=== PATIENT | female | born 1945 | race Caucasian/White ===

== ENCOUNTER 2022-12-14 12:39 | Outpatient (REF) | payer MEDICARE, OTHER, SELFPAY | END 2022-12-14 12:40 | disposition home or self-care (01) | LOC: NCHCN 12:39 | PROVIDERS: Visit Provider Family Medicine | DX: R35.0 Frequency of micturition (principal); F32.9 Major depressive disorder, single episode, unspecified; R82.90 Unspecified abnormal findings in urine; F41.9 Anxiety disorder, unspecified | CPT/HCPCS: 87086 ==